=== PATIENT | female | born 1975 | race Two or more races ===

== ENCOUNTER 2017-01-16 21:01 | Emergency (ER) | payer BC ==
[~2017-01-16] VITALS: Wt 53.5 kg
[2017-01-17] MEDS ORDERED: SOD CHLORIDE 0.9% 1,000 ML IV STA (00:14)
[2017-01-17] MEDS ORDERED: KETOROLAC 30 MG INJ IV STA (00:14)
[2017-01-17 00:42] LABS: URINE BLOOD (Dip) POC 2+ (NEGATIVE)
--- NOTE | 2017-01-17 01:11 | RADRPT ---
PROCEDURE: Chest. CLINICAL INDICATION: Chest pain. TECHNIQUE: Single frontal view of the chest was obtained. COMPARISON: None. FINDINGS: The cardiac silhouette is within normal limits. The aortic arch is unremarkable. There is no focal consolidation, vascular congestion or pleural effusion. There is no pneumothorax. IMPRESSION: No evidence for active cardiopulmonary disease. .David Levine MD, MD Date Time Electronically viewed and signed by .David Levine MD, MD on 01/17/2017 01:11 .T/
[2017-01-17 01:15] LABS: ADD SCAN DIFF NO
[2017-01-17 01:17] LABS: BASOPHIL # 0.1 10^3/ul (0.0-0.1); BASOPHILS % 0.5 % (0.0-2.0); EOSINOPHILS % 0.4 % (0.0-7.0); HEMATOCRIT 41.7 % (37.0-47.0); HEMOGLOBIN 13.5 g/dl (12.0-16.0); LYMPHOCYTES # 2.3 10^3/ul (0.8-2.9); LYMPHOCYTES % 23.5 % (15.0-51.0); MEAN CORPUSCULAR HEMOGLOBIN 28.6 pg (29.0-33.0); MEAN CORPUSCULAR HGB CONC 32.4 g/dl (32.0-37.0); MEAN CORPUSCULAR VOLUME 88.3 fl (82.0-101.0); MEAN PLATELET VOLUME 11.9 fl (7.4-10.4); MONOCYTE # 0.4 10^3/ul (0.3-0.9); MONOCYTES % 4.5 % (0.0-11.0); NEUTROPHIL # 6.8 10^3/ul (1.6-7.5); NEUTROPHILS % 70.7 % (39.0-77.0); PLATELET COUNT 222 10^3/UL (140-415); RED BLOOD COUNT 4.72 10^6/ul (4.20-5.40); RED CELL DISTRIBUTION WIDTH 12.6 % (11.5-14.5); WHITE BLOOD COUNT 9.7 10^3/ul (4.8-10.8)
[2017-01-17 01:42] LABS: INR 1.1; PROTIME 14.2 Sec (12.2-14.2); PT RATIO 1.1
[2017-01-17 01:43] LABS: PARTIAL THROMBOPLASTIN TIME 29.3 Sec (25.0-35.0)
[2017-01-17 02:48] VITALS: TEMP 98
[2017-01-17 03:15] LABS: CHLORIDE 105 mmol/L (97-110); POTASSIUM 3.8 mmol/L (3.5-5.1); SODIUM 145 mmol/L (135-144)
[2017-01-17 03:17] LABS: CREATININE 0.51 mg/dl (0.44-1.00)
[2017-01-17 03:18] LABS: ANION GAP 19 (8-16); BLOOD UREA NITROGEN 15 mg/dl (7-20); CALCIUM 9.1 mg/dl (8.4-10.2); CARBON DIOXIDE 25 mmol/L (21-31); GLUCOSE 87 mg/dl (70-220)
[2017-01-17 03:37] LABS: TROPONIN-I < 0.012 ng/ml (0.00-0.12)
[2017-01-17] MEDS ORDERED: IBUP-1542 PO (03:46)
[2017-01-17 04:04] VITALS: BP 97/57; PULSE 60; RESP 16
--- NOTE | 2017-01-17 06:32 | ERD ---
ER Documentation Chief Complaint Date/Time DATE: 01/17/17 TIME: 06:24 Chief Complaint Called 911 and felt dizziness. HPI This is a 41-year-old female presenting to emergency department for dizziness and presyncopal episode earlier today. Patient states she started feeling dizzy while at work, she then felt as though she was about to pass out Now, patient states she is having intermittent chest pain with shortness of breath. No nausea, vomiting or diarrhea. No fevers or chills. Denies abdominal pain or back pain. No dysuria, hematuria, urinary frequency or urinary urgency. Patient states dizziness is worse with head movement. No earache or headache. ROS All systems reviewed and are negative except as per history of present illness. Medications Home Meds Active Scripts Ibuprofen* (Motrin*) 600 Mg Tab, 600 MG PO Q6, #15 TAB Prov:MICHI WEBBER Tarun DA SILVA 01/17/17 Allergies Allergies: Coded Allergies: No Known Allergy (Unverified , 01/16/17) PMhx/Soc Hx Alcohol Use: No Hx Substance Use: No Hx Tobacco Use: No Smoking Status: Never smoker Physical Exam Vitals Vital Signs Date Time Temp Pulse Resp B/P Pulse Ox O2 Delivery O2 Flow Rate FiO2 01/17/17 04:04 60 16 97/57 99 Room Air 01/17/17 02:48 98.0 70 18 110/75 99 Room Air 01/16/17 21:26 97.9 62 20 104/63 99 Physical Exam Const: Alert, [id number] Head: Atraumatic Eyes: Normal Conjunctiva ENT: Normal External Ears, Nose and Mouth. Neck: Full range of motion..~ No meningismus. Resp: Clear to auscultation bilaterally. No wheezing, rhonchi or crackles. Cardio: Regular rate and rhythm, no murmurs Abd: Soft, non tender, non distended. Normal bowel sounds Skin: No petechiae or rashes Back: No midline or flank tenderness Ext: No cyanosis, or edema Neur: Awake and alert Psych: Normal Mood and Affect Result Diagram: 01/17/17 0045 01/17/17 0240 Results 24 hrs Laboratory Tests Test 01/17/17 00:44 01/17/17 00:45 01/17/17 02:40 Bedside Urine pH (LAB) 7.0 Bedside Urine Protein (LAB) Negative Bedside Urine Glucose (UA) Negative Bedside Urine Ketones (LAB) 2+ Bedside Urine Blood 2+ Bedside Urine Nitrite (LAB) Negative Bedside Urine Leukocyte Esterase (L Negative White Blood Count 9.710^3/ul Red Blood Count 4.7210^6/ul Hemoglobin 13.5g/dl Hematocrit 41.7% Mean Corpuscular Volume 88.3fl Mean Corpuscular Hemoglobin 28.6pg Mean Corpuscular Hemoglobin Concent 32.4g/dl Red Cell Distribution Width 12.6% Platelet Count 52222^3/UL Mean Platelet Volume 11.9fl Neutrophils % 70.7% Lymphocytes % 23.5% Monocytes % 4.5% Eosinophils % 0.4% Basophils % 0.5% Nucleated Red Blood Cells % 0.0/100WBC Neutrophils # 6.810^3/ul Lymphocytes # 2.310^3/ul Monocytes # 0.410^3/ul Eosinophils # 0.010^3/ul Basophils # 0.110^3/ul Nucleated Red Blood Cells # 0.010^3/ul Prothrombin Time 14.2Sec Prothrombin Time Ratio 1.1 INR International Normalized Ratio 1.10 Activated Partial Thromboplast Time 29.3Sec Sodium Level 145mmol/L Potassium Level 3.8mmol/L Chloride Level 105mmol/L Carbon Dioxide Level 25mmol/L Anion Gap 19 Blood Urea Nitrogen 15mg/dl Creatinine 0.51mg/dl Glucose Level 87mg/dl Calcium Level 9.1mg/dl Troponin I < 0.012ng/ml Current Medications Medications (Trade) Dose Ordered Sig/Hannah Route PRN Reason Start Time Stop Time Status Last Admin Dose Admin Sodium Chloride (NS) 1,000 ml @ 1,000 mls/hr Q1H STAT IV 01/17/17 00:14 01/17/17 01:13 DC 01/17/17 01:11 Ketorolac Tromethamine (Toradol) 30 mg ONCE STAT IV 01/17/17 00:14 01/17/17 00:19 DC 01/17/17 01:11 Procedures/MDM Patient: ERIKA BAL : 1975 Age: 41 Sex: F MR #: [id number] DOS: 01/17/17 0014 Ordering MD: MICHI WEBBER NP Location: [facility] Room/Bed: PROCEDURE: Chest. CLINICAL INDICATION: Chest pain. TECHNIQUE: Single frontal view of the chest was obtained. COMPARISON: None. FINDINGS: The cardiac silhouette is within normal limits. The aortic arch is unremarkable. There is no focal consolidation, vascular congestion or pleural effusion. There is no pneumothorax. IMPRESSION: No evidence for active cardiopulmonary disease. EKG: as interpreted by Rate/Rhythm: Normal sinus rhythm with heart rate 68 bpm QRS, ST, T-waves: No changes consistent w/ acute ischemia Impression: No evidence of ischemia or arrhythmia MDM: 41-year-old female presents emergency department for dizziness and intermittent chest pain starting today. Currently patient states she is short of breath with midsternal chest pain. Chest pain is not reproducible on physical exam. EKG shows NSR with HR 68 bpm. Chest x-ray reviewed by radiologist as no active cardiopulmonary disease. Vital signs remained stable. PERC rule negative. Labs are unremarkable. Troponin negative. Urine dip shows 2+ blood and 2+ ketones, patient is currently menstruating. IV access obtained. Patient given Toradol 30mg IV and 1L IV fluid bolus. Upon reassessment, patient states she is feeling much better. Now, denies any chest pain or dizziness. Differential diagnosis includes but not limited to pneumonia, bronchitis, pleurisy, costochondritis, gastroesophageal reflux,musculoskeletal chest pain and esophageal spasm. Low suspicion for acute coronary syndrome, pulmonary embolism, pneumothorax, aortic dissection and myocardial infarction. Patient is appropriate for outpatient management and will be discharged as stable. Patient will be given prescription for ibuprofen. Instructed patient to follow up with primary care provider in the next 24-48 hours. Return to ED for worsening pain, abdominal pain, vomiting, diarrhea, high fever or any new or worsening symptoms. Patient verbalizes understanding. All questions answered at discharge. Departure Diagnosis: Primary Impression: Dizziness Additional Impression: Chest pain Chest pain type: unspecified Qualified Code: R07.9 - Chest pain, unspecified type Condition: Stable Patient Instructions: Chest Pain, Uncertain Cause Referrals: COMMUNITY CLINICS YOU HAVE RECEIVED A MEDICAL SCREENING EXAM AND THE RESULTS INDICATE THAT YOU DO NOT HAVE A CONDITION THAT REQUIRES URGENT TREATMENT IN THE EMERGENCY DEPARTMENT. FURTHER EVALUATION AND TREATMENT OF YOUR CONDITION CAN WAIT UNTIL YOU ARE SEEN IN YOUR DOCTORS OFFICE WITHIN THE NEXT 1-2 DAYS. IT IS YOUR RESPONSIBILITY TO MAKE AN APPOINTMENT FOR FOLOW-UP CARE. IF YOU HAVE A PRIMARY DOCTOR --you should call your primary doctor and schedule an appointment IF YOU DO NOT HAVE A PRIMARY DOCTOR YOU CAN CALL OUR PHYSICIAN REFERRAL HOTLINE AT IF YOU CAN NOT AFFORD TO SEE A PHYSICIAN YOU CAN CHOSE FROM THE FOLLOWING [facility] [address] [facility] [address] [facility] [address] [facility] [address] [facility] [address] [facility]. [facility] [address] [facility]. [facility] YOU HAVE RECEIVED A MEDICAL SCREENING EXAM AND THE RESULTS INDICATE THAT YOU DO NOT HAVE A CONDITION THAT REQUIRES URGENT TREATMENT IN THE EMERGENCY DEPARTMENT. FURTHER EVALUATION AND TREATMENT OF YOUR CONDITION CAN WAIT UNTIL YOU ARE SEEN IN YOUR DOCTORS OFFICE WITHIN THE NEXT 1-2 DAYS. IT IS YOUR RESPONSIBILITY TO MAKE AN APPOINTMENT FOR FOLOW-UP CARE. IF YOU HAVE A PRIMARY DOCTOR --you should call your primary doctor and schedule and appointment IF YOU DO NOT HAVE A PRIMARY DOCTOR YOU CAN CALL OUR PHYSICIAN REFERRAL HOTLINE AT . IF YOU CAN NOT AFFORD TO SEE A PHYSICIAN YOU CAN CHOSE FROM THE FOLLOWING [facility]: [facility] [address] [place] [address] [facility] [address] [place] [address] [facility] [address] [place] [address] Additional Instructions: Call your primary care doctor TOMORROW for an appointment during the next 2-3 days.See the doctor sooner or return here if your condition worsens before your appointment time. Return to ED for any high fever, chest pain, difficulty breathing, shortness breath, wheezing, vomiting, diarrhea, abdominal pain or any new or worsening symptoms. MICHI WEBBER NP January 17, 2017 06:32
== END 2017-01-17 04:15 | disposition home or self-care (01) ==
LOC: FTE 21:01
DX: R42 Dizziness and giddiness (principal); R07.9 Chest pain, unspecified
CPT/HCPCS: 71010; 80048; 81003; 84484; 85025; 85610; 85730; 93005; J1885; J7030; 36415; 96374

== ENCOUNTER 2018-05-15 19:37 | Emergency (ER) | END 2018-05-16 02:31 | disposition home or self-care (01) ==